=== PATIENT | female | born 1985 | race Caucasian/White ===

== ENCOUNTER 2016-08-02 20:07 | Emergency (ER) | payer OTHER ==
[2016-08-02 20:16] VITALS: BP 113/68; PULSE 99; TEMP 100.1; BMI 23.9
[2016-08-02] MEDS ORDERED: ACETAMINOPHEN 500 MG TABLET (FP) PO ONE (20:31)
[2016-08-02] MEDS ORDERED: ACETAMINOPHEN 500 MG TABLET (FP) ONE (20:34)
--- NOTE | 2016-08-02 20:42 | PDOC ---
History of Present Illness - General Chief Complaint: Cold Symptoms Stated Complaint: FEVER Time Seen by Provider: 08/02/16 20:23 History Source: Patient Exam Limitations: No Limitations - History of Present Illness Initial Comments: 08/02/16 20:32 30 yr female with 3 days fever, body aches, joint pains, nasal congestion. no vomiting or diarrhea. Pt states he 2 young children with same symptoms. 08/02/16 20:42 08/02/16 20:43 Past History - Past Medical History Allergies/Adverse Reactions: Allergies Allergy/AdvReac Type Severity Reaction Status Date / Time No Known Allergies Allergy Verified 08/02/16 20:12 Home Medications: Ambulatory Orders Ibuprofen 800 mg PO TID PRN #20 tablet 08/02/16 Meclizine HCl 25 mg PO TID PRN #6 tablet 08/02/16 Asthma: No Cancer: No Cardiac Disorders: No Diabetes: No HTN: No Seizures: No Thyroid Disease: No - Psycho/Social/Smoking Cessation Hx Anxiety: No Suicidal Ideation: No Smoking History: Never smoked Have you smoked in the past 12 months: No Hx Alcohol Use: No Drug/Substance Use Hx: No Substance Use Type: None Hx Substance Use Treatment: No Respiratory Specific PMHX - Complaint Specific PMHX Angina: No Review of Systems - Review of Systems Able to Perform ROS?: Yes Is the patient limited Colombian proficient: No Constitutional: Yes: See HPI HEENTM: Yes: See HPI Respiratory: Yes: See HPI *Physical Exam - Vital Signs Last Vital Signs Temp Pulse Resp BP Pulse Ox 100.1 F H 99 H 18 113/68 99 08/02/16 20:10 08/02/16 20:10 08/02/16 20:10 08/02/16 20:10 08/02/16 20:10 - Physical Exam General Appearance: Yes: Nourished, Appropriately Dressed HEENT: positive: EOMI, COURTNEY, Normal ENT Inspection, Pharyngeal Erythema, Nasal Congestion. negative: Tonsillar Exudate, Tonsillar Erythema Neck: positive: Supple. negative: Tender, Lymphadenopathy (R), Tender lateral, Tender midline Respiratory/Chest: positive: Lungs Clear, Normal Breath Sounds, Other (dry cough ). negative: Chest Tender Cardiovascular: positive: Regular Rhythm, Regular Rate Gastrointestinal/Abdominal: positive: Normal Bowel Sounds, Soft. negative: Tender Musculoskeletal: positive: Normal Inspection. negative: CVA Tenderness, CVA Tenderness (R), Vertebral Tenderness Extremity: positive: Normal Capillary Refill, Normal Inspection, Normal Range of Motion Integumentary: positive: Normal Color, Dry, Warm Neurologic: positive: Fully Oriented, Alert, Normal Mood/Affect, Normal Response , Motor Strength 5/5 Medical Decision Making - Medical Decision Making 08/02/16 20:43 cc: flu like symptoms , well appearing non toxic will swab for flu, no urianry complaints tylenol for headache , pt took 400mg motrin at 5pm pt is tolerating po, no throat pain pt understands the dc plan and the need for follow up with PMD if symptoms worsen or do not improve. 08/02/16 22:01 *DC/Admit/Observation/Transfer Diagnosis at time of Disposition: Flu - Discharge Dispostion Disposition: HOME Condition at time of disposition: Good - Prescriptions Prescriptions: Ibuprofen 800 mg PO TID PRN #20 tablet PRN Reason: Fever Or Pain Meclizine HCl 25 mg PO TID PRN #6 tablet PRN Reason: dizzyness - Referrals Referrals: Yudith Vickers [Primary Care Provider] - - Patient Instructions Additional Instructions: drink at least 1-2 liters of water a day or any other liquids you prefer, juice sabino lucille gatorade get pleanty of rest take ibuorofen 800mg every 6hrs for pain or fever you can also take tylenol 650mg every 4hrs for fever take meclizine as needed for dizzyness or nausea follow with your doctor in 1-[address] [facility] return to ER for any worsening symptoms Beber al menos 1-2 litros de agua al da o cualquier otro lquido que prefiera, jugo gingerade lucille gatorade Obtener mucho de descanso Chaz ibuorofen 800 mg cada 6 horas para el dolor o la fiebre tambin puede chaz tylenol 650 mg cada 4 horas para la fiebre [place] meclizine segn sea necesario para los mareos o nuseas Siga con mehta mdico en 1-3 sweeney o en la [facility] Regresar a urgencias por cualquier empeoramiento de los sntomas Print Language: ARABIC
== END 2016-08-02 20:53 | disposition home or self-care (01) ==
LOC: JERFT 20:07
DX: J11.1 Influenza due to unidentified influenza virus with other respiratory manifestations (principal)
CPT/HCPCS: 87804; 99281-25

== ENCOUNTER 2017-08-16 17:58 | Emergency (ER) | payer OTHER ==
--- NOTE | 2017-08-16 18:06 | PDOC ---
Rapid Medical Evaluation Time Seen by Provider: 08/16/17 18:03 Medical Evaluation: Allergies Allergy/AdvReac Type Severity Reaction Status Date / Time No Known Allergies Allergy Verified 08/02/16 20:12 08/16/17 18:04 The patient presents with a chief complaint of: [Reproducible right lateral lower back pain since yesterday. No urinary symptoms. ] I have performed a brief in-person evaluation of this patient. Pertinent physical exam findings: vss, [Right lateral lower back pain, No CVA tenderness. ] I have ordered the following: UA, Urine preg] The patient will proceed to the ED for further evaluation. Discharge Disposition - Diagnosis Back pain - Referrals - Patient Instructions - Post Discharge Activity
[2017-08-16 18:07] VITALS: BP 130/72; PULSE 87; TEMP 98; BMI 23.9
[2017-08-16 18:48] LABS: URINE APPEARANCE CLEAR; URINE BILIRUBIN NEGATIVE (NEGATIVE); URINE BLOOD NEGATIVE (NEGATIVE); URINE COLOR STRAW; URINE GLUCOSE (UA) NEGATIVE (NEGATIVE); URINE KETONE NEGATIVE (NEGATIVE); URINE LEUK ESTERASE NEGATIVE (NEGATIVE); URINE NITRITE NEGATIVE (NEGATIVE); URINE PROTEIN NEGATIVE (NEGATIVE); URINE UROBILINOGEN NEGATIVE mg/dL (0.2-1.0)
[2017-08-16 18:49] LABS: HCG,QUALITATIVE URINE NEGATIVE
[2017-08-16] MEDS ORDERED: KETOROLAC TROMETHAMINE 60 MG/2 ML VIAL IM ONE (18:57)
[2017-08-16] MEDS ORDERED: KETOROLAC TROMETHAMINE 60 MG/2 ML VIAL ONE (19:00)
--- NOTE | 2017-08-16 19:02 | PDOC ---
History of Present Illness - General Chief Complaint: Back Pain Stated Complaint: ABD PAIN Time Seen by Provider: 08/16/17 18:03 History Source: Patient Exam Limitations: No Limitations - History of Present Illness Initial Comments: 08/16/17 18:59 31 yr female with c/o low back pain radiates to buttock and outer thigh no urine or bowel dysfunction. Pt states she lifted her 2 yr old child and felt pain .. no PMHX. Timing/Duration: 24 hours Severity: moderate Past History - Past Medical History Allergies/Adverse Reactions: Allergies Allergy/AdvReac Type Severity Reaction Status Date / Time No Known Allergies Allergy Verified 08/16/17 18:05 Home Medications: Ambulatory Orders Diazepam [Valium] 5 mg PO Q8H PRN #12 tablet MDD 15mg 08/16/17 Naproxen [Naprosyn -] 500 mg PO BID PRN #28 tablet 08/16/17 Asthma: No Cancer: No Cardiac Disorders: No COPD: No DVT: No Diabetes: No HTN: No Seizures: No Thyroid Disease: No - Suicide/Smoking/Psychosocial Hx Smoking History: Never smoked Have you smoked in the past 12 months: No Information on smoking cessation initiated: No Hx Alcohol Use: No Drug/Substance Use Hx: No Substance Use Type: None Hx Substance Use Treatment: No Review of Systems - Review of Systems Able to Perform ROS?: Yes Is the patient limited Georgian proficient: No Constitutional: No: Symptoms Reported HEENTM: No: Symptoms Reported Respiratory: No: Symptoms reported Cardiac (ROS): No: Symptoms Reported ABD/GI: No: Symptoms Reported : No: Symptoms Reported Musculoskeletal: Yes: See HPI, Back Pain *Physical Exam - Vital Signs Last Vital Signs Temp Pulse Resp BP Pulse Ox 98.0 F 87 18 130/72 100 08/16/17 18:05 08/16/17 18:05 08/16/17 18:05 08/16/17 18:05 08/16/17 18:05 - Physical Exam General Appearance: Yes: Nourished, Appropriately Dressed HEENT: positive: EOMI, COURTNEY Neck: positive: Supple. negative: Tender, Tender lateral, Tender midline Respiratory/Chest: positive: Lungs Clear, Normal Breath Sounds Cardiovascular: positive: Regular Rhythm, Regular Rate Musculoskeletal: positive: Normal Inspection, Decreased Range of Motion (due to pain lumbar paraspinal soft tissue ttp ). negative: CVA Tenderness, CVA Tenderness (L), Vertebral Tenderness Extremity: positive: Normal Capillary Refill, Normal Inspection, Normal Range of Motion, Other (pos SLR right leg at 45 degrees ) Integumentary: positive: Normal Color, Dry, Warm Neurologic: positive: Fully Oriented, Alert, Normal Mood/Affect, Normal Response , Motor Strength 5/5 ED Treatment Course - ADDITIONAL ORDERS Additional order review: Laboratory Results 08/16/17 18:28 Urine Color Straw Urine Appearance Clear Urine pH 6.0 Ur Specific [place] 1.006 Urine Protein Negative Urine Glucose (UA) Negative Urine Ketones Negative Urine Blood Negative Urine Nitrite Negative Urine Bilirubin Negative Urine Urobilinogen Negative Ur Leukocyte Esterase Negative Urine HCG, Qual Negative Medical Decision Making - Medical Decision Making 08/16/17 19:01 cc: low back pain to buttock and thigh after lifting heavy child no saddle anesthesia neg urine or bowel incontinence or complaints no abd pain neg nvd no saddle anesthesia will give toradol now dc with valium and naprosyn follow up with ortho as needed pt and her agree with plan of care 08/16/17 19:06 *DC/Admit/Observation/Transfer Diagnosis at time of Disposition: Back pain Qualifiers: Back pain location: low back pain Chronicity: acute Back pain laterality: right Sciatica presence: with sciatica Sciatica laterality: sciatica of right side Qualified Code(s): M54.41 - Lumbago with sciatica, right side - Discharge Dispostion Disposition: HOME Condition at time of disposition: Good - Prescriptions Prescriptions: Diazepam [Valium] 5 mg PO Q8H PRN #12 tablet MDD 15mg PRN Reason: Muscle Spasms Naproxen [Naprosyn -] 500 mg PO BID PRN #28 tablet PRN Reason: Back Pain - Referrals Referrals: Keenan Madison MD [Staff Physician] - - Patient Instructions Additional Instructions: follow with the orthopedist for follow up this week if no improvement take the medications as prescribed warm compresses to ower back no heavy lifting or bending return to ER for any worsening pain, numbness tingling to legs, incontinence of urine or bowel - Post Discharge Activity
== END 2017-08-16 19:07 | disposition home or self-care (01) ==
LOC: JERFT 17:58
PROC: 3E0333Z Introduction of Anti-inflammatory into Peripheral Vein, Percutaneous Approach (ICD-10-PCS; principal; 2017-08-16)
DX: M54.31 Sciatica, right side (principal)
CPT/HCPCS: 81003; 84703; 96372; 99281-25

== ENCOUNTER 2018-02-17 05:08 | Day surgery (SDC) | payer OTHER ==
[2018-02-10 11:34] VITALS: BMI 23.7
[2018-02-17] MEDS ORDERED: oxyCODONE HCL 5 MG TABLET PO PRN ×2 (14:12)
[2018-02-17] MEDS ORDERED: ONDANSETRON 4 MG/2 ML VIAL IVPUSH PRN (14:12)
[2018-02-17] MEDS ORDERED: LACTATED RINGERS SOLUTION 1,000 ML IV SCH (14:15)
[2018-02-17] MEDS ORDERED: MIDAZOLAM HCL 2 MG/2 ML SINGLE DOSE VIAL ONE (14:49)
[2018-02-17] MEDS ORDERED: PROPOFOL 20 ML ONE (14:51)
[2018-02-17] MEDS ORDERED: SUCCINYLCHOLINE CHLORIDE 200 MG/10 ML VIAL ONE (14:51)
[2018-02-17] MEDS ORDERED: ROCURONIUM BROMIDE 50 MG/5 ML VIAL ONE (14:51)
[2018-02-17] MEDS ORDERED: DEXAMETHASONE SOD PHOSPHATE 4 MG/1 ML VIAL ONE (15:28)
[2018-02-17] MEDS ORDERED: LIDOCAINE HCL/PF 2% SDV 5ML VIAL ONE (15:28)
[2018-02-17] MEDS ORDERED: GLYCOPYRROLATE 0.2 MG/1 ML VIAL ONE (15:29)
[2018-02-17 17:22] VITALS: TEMP 97.8
--- NOTE | 2018-02-17 17:40 | HP ---
Past Medical History - Primary Care Physician PCP:: Jose Munson - Admission Chief Complaint: sterlization History of Present Illness: 32 yo f g 2 p2 requesting sterilizati, aware btl is permanent and not reversible , has small failure risk and risks of ectopic , . risks of procedure discussed with patient , ulternatives explained History Source: Patient Limitations to Obtaining History: No Limitations - Past Medical History ...: 2 ...Para: 2 - Past Surgical History Past Surgical History: Yes: None Hx Myomectomy: No Hx Transabdominal Cerclage: No - Smoking History Smoking history: Never smoked Have you smoked in the past 12 months: No - Alcohol/Substance Use Hx Alcohol Use: No - Social History History of Recent Travel: No Home Medications - Allergies Allergies/Adverse Reactions: Allergies Allergy/AdvReac Type Severity Reaction Status Date / Time No Known Allergies Allergy Verified 08/16/17 18:05 - Home Medications Home Medications: Ambulatory Orders NK [No Known Home Medication] 02/10/18 Review of Systems - Review of Systems Constitutional: reports: No Symptoms Eyes: reports: No Symptoms HENT: reports: No Symptoms Neck: reports: No Symptoms Cardiovascular: reports: No Symptoms Respiratory: reports: No Symptoms Gastrointestinal: reports: No Symptoms Genitourinary: reports: No Symptoms Breasts: reports: No Symptoms Reported Musculoskeletal: reports: No Symptoms Integumentary: reports: No Symptoms Neurological: reports: No Symptoms Endocrine: reports: No Symptoms Hematology/Lymphatic: reports: No Symptoms Psychiatric: reports: No Symptoms Physical Exam-COIL TIER Vital Signs: Vital Signs Temperature 97.8 F 02/17/18 17:10 Pulse Rate 70 02/17/18 17:10 Respiratory Rate 18 02/17/18 17:10 Blood Pressure 103/67 02/17/18 17:10 O2 Sat by Pulse Oximetry (%) 100 02/17/18 17:10 Constitutional: Yes: Well Nourished, No Distress, Calm Eyes: Yes: WNL, Conjunctiva Clear, EOM Intact HENT: Yes: WNL, Atraumatic, Normocephalic Neck: Yes: WNL, Supple, Trachea Midline Cardiovascular: Yes: WNL, Regular Rate and Rhythm Respiratory: Yes: WNL, Regular, CTA Bilaterally Gastrointestinal: Yes: WNL ...Rectal Exam: Yes: WNL Renal/: Yes: WNL Vaginal Exam: Yes: Normal Cervix: Yes: Normal Uterus: Yes: Normal Adnexa: Not Palpable: Left, Right Breast(s): Yes: WNL Musculoskeletal: Yes: WNL Extremities: Yes: WNL Edema: No Integumentary: Yes: WNL Neurological: Yes: WNL, Alert, Oriented ...Motor Strength: WNL Psychiatric: Yes: WNL, Alert, Oriented Problem List - Problem (1) Admission for sterilization Code(s): Z30.2 - ENCOUNTER FOR STERILIZATION Assessment/Plan laparoscopy bilateral tubal fulguration
[2018-02-17 20:12] VITALS: BP 106/61; PULSE 77
--- NOTE | 2018-02-21 16:46 | PATH ---
Surgical Pathology Report Patient Name: YOJANA CROCKETT [facility]. Rec. #: [id number] /Age/Gender: 1985 (Age: 32) / F Account: [id number] Location: [facility] SURGICAL Taken: 02/17/2018 Received: 02/18/2018 Reported: 02/21/2018 Physicians: Jose Munson M.D. Specimen(s) Received OLD IUD Clinical History Voluntary sterilization Final Diagnosis INTRAUTERINE DEVICE (IUD), REMOVAL: INTRAUTERINE DEVICE. MACROSCOPIC DIAGNOSIS. Electronically Signed Yudith Isaac M.D. Gross Description Received fresh labeled "old IUD," is a 3 cm in length T-shaped device with attached string, consistent with an IUD. No soft tissue is present. No sections are submitted, gross only. 02/18/2018 formerly [facility]02/18/2018
--- NOTE | 2018-04-24 14:13 | OP ---
DATE OF OPERATION: 02/17/2018 PREOPERATIVE DIAGNOSIS: Voluntary sterilization. POSTOPERATIVE DIAGNOSIS: Voluntary sterilization. PROCEDURE: Laparoscopic bilateral tubal cauterization. SURGEON: Jose Munson MD ANESTHESIA: General. ESTIMATED BLOOD LOSS: Minimal. OPERATION: The patient was taken to the operating room, where adequate general anesthesia was induced in lithotomy position. Examination under anesthesia revealed the external genitalia to be normal. Vagina was normal, cervix was clean. No lesion. Uterus normal-size. Adnexa, no masses were palpable. Then, with the weighted speculum in the vagina, the anterior lip of the cervix was grasped with a single-toothed tenaculum. The uterine cavity was sounded to 7 cm and then Hulka was introduced for manipulation of the uterus. Then, the patient was prepped and draped for a . A small infraumbilical skin incision was made. The Veress needle was introduced, pneumoperitoneum established. A 5-mm trocar was introduced through the umbilical area and then the scope was introduced. Under direct vision, a 5-mm trocar introduced through the suprapubic area. Bipolar cautery was introduced. Both tubes and ovaries were normal. The uterus was normal-size. The pelvic cul-de-sac was free of adhesions. Upper abdomen was checked; was normal. Then, right tube was grasped with a bipolar cautery, cauterized in 3 portions 2 cm apart. The same procedure repeated for opposite tube. Visualization of both tubes showed adequate cauterization without any bleeding. Then, abdomen was emptied of all the gas and instruments withdrawn. Suprapubic and infraumbilical skin incisions were first closed with 0 Vicryl suture and then skin was closed with Dermabond glue. The patient tolerated the procedure well and left the OR in good condition. Fadi [id number]
== END 2018-02-17 20:10 | disposition home or self-care (01) ==
LOC: JASU-SURG 05:08
PROVIDERS: ATTEND Obstetrics & Gynecology
PROC: 0U574ZZ Destruction of Bilateral Fallopian Tubes, Percutaneous Endoscopic Approach (ICD-10-PCS; principal; 2018-02-17 14:30)
DX: Z30.2 Encounter for sterilization (principal)
CPT/HCPCS: 84703; 88300-TC; 94760